=== PATIENT | male | born 1985 | race Caucasian/White ===

== ENCOUNTER 2018-01-16 13:56 | Inpatient (IN) | payer BC ==
[2018-01-16 14:27] VITALS: BMI 28.7
--- NOTE | 2018-01-16 16:41 | HP ---
COWS - Scale Resting Pulse: 0= [place] 80 or Below Sweatin=Flushed/Facial Moisture Restless Observation: 1= Difficult to Sit Still Pupil Size: 2= Moderately Dilated Bone or Joint Aches: 1= Mild Discomfort Runny Nose/ Eye Tearin= Runny Nose/Eyes GI Upset > 30mins: 2= Nausea/Diarrhea Tremor Observation: 2= Slight Tremor Visible Yawning Observation: 0= None Anxiety or Irritability: 1=Feels Anxious/Irritable Goose Flesh Skin: 0=Smooth Skin COWS Score: 13 Admission ROS S - HPI Chief Complaint: Here for percocet detox. Allergies/Adverse Reactions: Allergies Allergy/AdvReac Type Severity Reaction Status Date / Time No Known Allergies Allergy Verified 01/16/18 18:09 History of Present Illness: Using percocets for approx 1 year. Uses 8-10 percocets or 6-8 oxy's. Denies heroin use. Denies alcohol use. Denies cocaine use. Has tried to stop 2 months ago and was ill. This is the first attempt at inpatient management. Denies significant PMH/PSH. - Ebola screening Have you traveled outside of the country in the last 21 days: No (N) Have you had contact with anyone from an Ebola affected area: No Have you been sick,other than usual withdrawal symptoms: No Do you have a fever: No - Review of Systems Constitutional: Chills EENT: reports: Other (Noted stye in eye 1 week ago after unknown object went in eye while weed wacking. Denies eye pain or vision changes.) Respiratory: reports: No Symptoms reported Cardiac: reports: No Symptoms Reported GI: reports: Nausea (r/t withdrawal) : reports: No Symptoms Reported Musculoskeletal: reports: Muscle Pain (mild r/t withdrawal) Integumentary: reports: No Symptoms Reported Neuro: reports: No Symptoms reported Endocrine: reports: No Symptoms Reported Hematology: reports: No Symptoms Reported Psychiatric: reports: No Sypmtoms Reported, Orientated x3 Patient History - Patient Medical History Hx Anemia: No Hx Asthma: No Hx Chronic Obstructive Pulmonary Disease (COPD): No Hx Cancer: No Hx Cardiac Disorders: No Hx Congestive Heart Failure: No Hx Hypertension: No Hx Hypercholesterolemia: No Hx Pacemaker: No HX Cerebrovascular Accident: No Hx Seizures: No Hx Dementia: No Hx Diabetes: No Hx Gastrointestinal Disorders: No Hx Liver Disease: No Hx Genitourinary Disorders: No Hx Sexually Transmitted Disorders: No Hx Renal Disease (ESRD): No Hx Thyroid Disease: No Hx Human Immunodeficiency Virus (HIV): No (Last tested 2 years ago. Refusing testing.) Hx Hepatitis C: No Hx Depression: No Hx Suicide Attempt: No (Denies suicide or violent ideation ) Hx Bipolar Disorder: No Hx Schizophrenia: No - Patient Surgical History Past Surgical History: No - PPD History Previous Implant?: Yes (5 years ago) Implanted On Prior R Admission?: No PPD to be Administered?: Yes - Reproductive History Patient is a Female of Child Bearing Age (11 -55 yrs old): No - Smoking Cessation Smoking history: Never smoked Have you smoked in the past 12 months: No - Substance & Tx. History Hx Alcohol Use: No Hx Substance Use: Yes Substance Use Type: Opiates Hx Substance Use Treatment: No - Substances Abused Oxycontin Route: Oral Frequency: Daily Amount used: 6-8 Age of first use: 30 Date of Last Use: 01/16/18 (11 am) Family Disease History - Family Disease History Family Disease History: CA: Father (Pancreatic - ), Respiratory: Father Admission Physical Exam [facility] - Vital Signs Vital Signs: Vital Signs - 24 hr 01/16/18 14:25 Temperature 98.4 F Pulse Rate 71 Respiratory 16 Rate Blood Pressure 141/82 - Physical General Appearance: Yes: Nourished, Appropriately Dressed HEENTM: Yes: EOMI, Hearing grossly Normal, Normocephalic, Normal Voice, SUSY ( Pupils at 4 mm dilation), Rhinorrhea, Other (small papule (L) lower inner eyelid. Sclera clear. Conjuntiva pink and w/o exudate.) Respiratory: Yes: Chest Non-Tender, Lungs Clear, Normal Breath Sounds Neck: Yes: No masses,lesions,Nodules, Supple Breast: Yes: Breast Exam Deferred Cardiology: Yes: Regular Rhythm, Regular Rate, S1, S2 Abdominal: Yes: Normal Bowel Sounds, Non Tender, Flat, Soft Genitourinary: Yes: Within Normal Limits Musculoskeletal: Yes: full range of Motion, Gait Steady Extremities: Yes: Normal Capillary Refill, Normal Inspection, Normal Range of Motion, Tremors (of extended arms) Neurological: Yes: road patcher II-XII NML intact, Fully Oriented, Alert, Motor Strength 5/5 Integumentary: Yes: Dry (Dry skin w/ decreased turgor/elascticity) - Diagnostic (1) Opiate withdrawal Current Visit: Yes Status: Acute (2) Dehydration Current Visit: Yes Status: Acute (3) Sty, external Current Visit: Yes Status: Acute Qualifiers: Laterality: left Eyelid: lower Qualified Code(s): H00.015 - Hordeolum externum left lower eyelid Cleared for Admission [facility] - Detox or Rehab [facility] Level of Care: Medically Managed Detox Regimen/Protocol: Methadone [facility] Breath Alcohol Content Breath Alcohol Content: 0 Urine Drug Screen - Results Drug Screen Negative: No Urine Drug Screen Results: JUAN DAVID-Cocaine, OPI-Opiates, OXY-Oxycodone
[2018-01-16] MEDS ORDERED: IBUPROFEN 400 MG TABLET (FP) PO PRN (17:04)
[2018-01-16] MEDS ORDERED: MAGNESIUM HYDROX 2400MG/30ML ORAL SUSPENSION 30 ML CUP PO PRN (17:04)
[2018-01-16] MEDS ORDERED: LOPERAMIDE HCL 2 MG CAPSULE PO PRN (17:04)
[2018-01-16] MEDS ORDERED: MENTHOL/PHENOL 1 EACH UD MM PRN (17:04)
[2018-01-16] MEDS ORDERED: MAGNESIUM CITRATE 300 ML BOTTLE PO PRN (17:04)
[2018-01-16] MEDS ORDERED: MAG HYDROX/AL HYDROX/SIMETH 30 ML UNIT-DOSE CUP PO PRN (17:04)
[2018-01-16] MEDS ORDERED: P-EPHED 60MG/TRIPROLIDI 2.5MG TABLET PO PRN (17:04)
[2018-01-16] MEDS ORDERED: guaiFENesin/D-METHORPHAN HB 10 ML UNIT-DOSE CUPS PO PRN (17:04)
[2018-01-16] MEDS ORDERED: ACETAMINOPHEN 325 MG TABLET (FP) PO PRN (17:04)
[2018-01-16] MEDS ORDERED: hydrOXYzine PAMOATE 50 MG CAPSULE (FP) PO PRN (17:04)
[2018-01-16] MEDS ORDERED: METHADONE HCL 10 MG TABLET (FOR DETOX USE ONLY) PO ONE ×2 (18:45→23:00)
[2018-01-16] MEDS: diazePAM 5 MG TABLET PO PRN (19:12)
[2018-01-16] MEDS: THIAMINE HCL 100 MG TABLET (FP) PO SCH (22:24)
[2018-01-16] MEDS: MELATONIN 5 MG TABLETS PO PRN (22:25)
[2018-01-16 23:21] LABS: URINE APPEARANCE CLEAR; URINE BILIRUBIN NEGATIVE (<2.0 mg/dL); URINE BLOOD NEGATIVE (NEGATIVE); URINE COLOR YELLOW; URINE GLUCOSE (UA) 2+ (NEGATIVE); URINE KETONE NEGATIVE (NEGATIVE); URINE LEUK ESTERASE NEGATIVE (NEGATIVE); URINE NITRITE NEGATIVE (NEGATIVE); URINE PROTEIN NEGATIVE (NEGATIVE)
[2018-01-17] MEDS ORDERED: METHADONE HCL 10 MG TABLET (FOR DETOX USE ONLY) PO ONE (10:00)
[2018-01-17 10:09] LABS: HEMATOCRIT 48.6 % (35.4-49); HEMOGLOBIN 16.4 GM/dL (11.7-16.9); MCH 30.4 pg (25.7-33.7); MCHC 33.8 g/dl (32.0-35.9); MEAN CELL VOLUME 89.9 fl (80-96); MEAN PLT VOLUME 8.8 fl (7.5-11.1); PLATELET COUNT 206 K/MM3 (134-434); RDW 13.4 % (11.9-15.9); WHITE BLOOD COUNT 6.1 K/mm3 (4.0-10.0)
[2018-01-17] MEDS: ERYTHROMYCIN 0.5% OPHTHALMIC OINTMENT 3.5 GM TUBE OU SCH (10:34)
[2018-01-17] MEDS: PRENATAL VITAMINS W/ FOLIC ACID TABLET (FP) PO SCH (10:35)
[2018-01-17 10:37] LABS: CHLORIDE 103 mmol/L (98-107); POTASSIUM 4.3 mmol/L (3.5-5.1); SODIUM 140 mmol/L (136-145)
--- NOTE | 2018-01-17 12:05 | CONSULT ---
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 This is patient's first admission to detox. Pt. admitted to for opioid dependence. Substance Abuse History: Smoking Cessation. Smoking history: Never smoked. Have you smoked in the past 12 months: No. - Substance & Tx. History. Hx Alcohol Use: No. Hx Substance Use: Yes. Substance Use Type: Opiates. Hx Substance Use Treatment: No. - Substances Abused. Oxycontin. Route: Oral. Frequency: Daily. Amount used: 6-8. Age of first use: 30. Date of Last Use : 01/16/18 (11 am) Medical History: Denies. Psychiatric History: Patient denies h/o psychiatric hospitalization, outpatient treatment, and suicide attempt. Physical/Sexual Abuse/Trauma History: Denies. Mental Status Exam - Mental Status Exam Alert and Oriented to: Time, Place, Person Cognitive Function: Good Patient Appearance: Well Groomed Mood: Hopeful Affect: Mood Congruent Patient Behavior: Appropriate, Cooperative Speech Pattern: Clear, Appropriate Voice Loudness: Normal Thought Process: Intact, Goal Oriented Thought Disorder: Not Present Hallucinations: Denies Suicidal Ideation: Denies Homicidal Ideation: Denies Insight/Judgement: Poor Sleep: Well Appetite: Good Muscle strength/Tone: Normal Gait/Station: Normal Psychiatric Findings - Problem List ([place] 1, 2,3) (1) Opiate withdrawal Current Visit: Yes Status: Acute - Initial Treatment Plan Initial Treatment Plan: Psychoeducation provided. Detoxification in progress. Observation.
[2018-01-17 12:21] LABS: ALBUMIN 3.6 g/dl (3.4-5.0); ALK PHOS 51 U/L (45-117); ANION GAP 10 (8-16); BILIRUBIN,TOTAL 0.6 mg/dL (0.2-1.0); BLOOD UREA NITROGEN 10 mg/dL (7-18); CALCIUM 8.7 mg/dL (8.5-10.1); CO2 27 mmol/L (21-32); CREATININE 1.2 mg/dL (0.7-1.3); GLUCOSE,RANDOM 91 mg/dL (74-106); SGOT/AST 26 U/L (15-37); SGPT/ALT 33 U/L (12-78); TOT PROT 6.8 g/dl (6.4-8.2)
--- NOTE | 2018-01-17 12:22 | EKG ---
Test Reason : Blood Pressure : / mmHG Vent. Rate : 060 BPM Atrial Rate : 060 BPM P-R Int : 142 ms QRS Dur : 088 ms QT Int : 380 ms P-R-T Axes : 052 037 046 degrees QTc Int : 380 ms NORMAL SINUS RHYTHM NORMAL ECG WHEN COMPARED WITH ECG OF 16-JAN-2018 18:55, NO SIGNIFICANT CHANGE WAS FOUND Confirmed by MD VICTORINO, CHRISTOPHER ([id number]) on 01/17/2018 12:22:24 PM Referred By: Confirmed By:CHRISTOPHER GLEASON MD
--- NOTE | 2018-01-17 12:25 | EKG ---
Test Reason : Blood Pressure : / mmHG Vent. Rate : 061 BPM Atrial Rate : 061 BPM P-R Int : 140 ms QRS Dur : 090 ms QT Int : 392 ms P-R-T Axes : 044 044 042 degrees QTc Int : 394 ms NORMAL SINUS RHYTHM WITH SINUS ARRHYTHMIA NORMAL ECG WHEN COMPARED WITH ECG OF 08-MAR-2015 01:34, NO SIGNIFICANT CHANGE WAS FOUND Confirmed by MD VICTORINO, CHRISTOPHER ([id number]) on 01/17/2018 12:24:51 PM Referred By: Confirmed By:CHRISTOPHER GLEASON MD
--- NOTE | 2018-01-17 14:56 | PN ---
BHS COWS - Scale Resting Pulse: 0= [place] 80 or Below Sweatin= Chills/Flushing Restless Observation: 1= Difficult to Sit Still Pupil Size: 0= Normal to Room Light Bone or Joint Aches: 1= Mild Discomfort Runny Nose/ Eye Tearin= Runny Nose/Eyes GI Upset > 30mins: 0= None Tremor Observation of Outstretched Hands: 2= Slight Tremor Visible Yawning Observation: 1= 1-2x During Session Anxiety or Irritability: 2=Irritable/Anxious Goose Flesh Skin: 3=Piloerection COWS Score: 13 BHS Progress Note (SOAP) Subjective: Tremors, Anxious, Interrupted Sleep. Objective: PATIENT A & O X 3, OBSERVED AMBULATING ON UNIT. NO ACUTE DISTRESS. 01/17/18 14:57 Vital Signs Temperature 97.0 F L 01/17/18 13:48 Pulse Rate 69 01/17/18 13:48 Respiratory Rate 20 01/17/18 13:48 Blood Pressure 109/69 01/17/18 13:48 O2 Sat by Pulse Oximetry (%) Laboratory Tests 01/16/18 01/17/18 01/17/18 22:30 07:20 07:20 WBC 6.1 D RBC 5.40 Hgb 16.4 Hct 48.6 MCV 89.9 MCH 30.4 MCHC 33.8 RDW 13.4 Plt Count 206 MPV 8.8 D Sodium 140 Potassium 4.3 Chloride 103 Carbon Dioxide 27 Anion Gap 10 BUN 10 D Creatinine 1.2 Creat Clearance w eGFR > 60 Random Glucose 91 Calcium 8.7 Total Bilirubin 0.6 AST 26 ALT 33 Alkaline Phosphatase 51 D Total Protein 6.8 Albumin 3.6 Urine Color Yellow Urine Appearance Clear Urine pH 6.0 Ur Specific [place] 1.020 Urine Protein Negative Urine Glucose (UA) 2+ H Urine Ketones Negative Urine Blood Negative Urine Nitrite Negative Urine Bilirubin Negative Urine Urobilinogen 2.0 Ur Leukocyte Esterase Negative LABS NOTED. RPR RESULT PENDING. 01/17/18 14:58 Assessment: 01/17/18 14:57 WITHDRAWAL SYMPTOMS. Plan: CONTINUE DETOX. INCREASE DAILY PO FLUID INTAKE.
[2018-01-17] MEDS: THIAMINE HCL 100 MG TABLET (FP) PO SCH (22:15)
[2018-01-17] MEDS: diazePAM 5 MG TABLET PO PRN (22:15)
[2018-01-18] MEDS ORDERED: cloNIDine HCL 0.1 MG TABLET PO ONE (09:55)
[2018-01-18] MEDS ORDERED: METHADONE HCL 5 MG TABLET (FOR DETOX USE ONLY) PO ONE (10:00)
[2018-01-18] MEDS: PRENATAL VITAMINS W/ FOLIC ACID TABLET (FP) PO SCH (10:37)
[2018-01-18] MEDS: ERYTHROMYCIN 0.5% OPHTHALMIC OINTMENT 3.5 GM TUBE OU SCH (10:38)
[2018-01-18] MEDS: diazePAM 5 MG TABLET PO PRN ×2 (10:38→22:10)
[2018-01-18] MEDS ORDERED: CYCLOBENZAPRINE HCL 10 MG TABLET (FP) PO PRN (12:37)
--- NOTE | 2018-01-18 13:42 | PN ---
BHS COWS - Scale Resting Pulse: 1= [place] 81-100 Sweatin= Chills/Flushing Restless Observation: 1= Difficult to Sit Still Pupil Size: 0= Normal to Room Light Bone or Joint Aches: 0= None Runny Nose/ Eye Tearin= Nasal Congestion GI Upset > 30mins: 1= Stomach Cramp Tremor Observation of Outstretched Hands: 2= Slight Tremor Visible Yawning Observation: 1= 1-2x During Session Anxiety or Irritability: 2=Irritable/Anxious Goose Flesh Skin: 3=Piloerection COWS Score: 13 BHS Progress Note (SOAP) Subjective: Tremors, Hot/Cold Sensations, Stomach Cramping, Body Aches. Objective: PATIENT A & O X 3, OBSERVED AMBULATING ON UNIT. NO ACUTE DISTRESS. 01/18/18 13:39 Vital Signs Temperature 97.6 F 01/18/18 09:37 Pulse Rate 84 01/18/18 09:37 Respiratory Rate 18 01/18/18 09:37 Blood Pressure 138/88 01/18/18 09:37 O2 Sat by Pulse Oximetry (%) Laboratory Tests 01/16/18 01/17/18 01/17/18 22:30 07:20 07:20 WBC 6.1 D RBC 5.40 Hgb 16.4 Hct 48.6 MCV 89.9 MCH 30.4 MCHC 33.8 RDW 13.4 Plt Count 206 MPV 8.8 D Sodium 140 Potassium 4.3 Chloride 103 Carbon Dioxide 27 Anion Gap 10 BUN 10 D Creatinine 1.2 Creat Clearance w eGFR > 60 Random Glucose 91 Calcium 8.7 Total Bilirubin 0.6 AST 26 ALT 33 Alkaline Phosphatase 51 D Total Protein 6.8 Albumin 3.6 Urine Color Yellow Urine Appearance Clear Urine pH 6.0 Ur Specific [place] 1.020 Urine Protein Negative Urine Glucose (UA) 2+ H Urine Ketones Negative Urine Blood Negative Urine Nitrite Negative Urine Bilirubin Negative Urine Urobilinogen 2.0 Ur Leukocyte Esterase Negative RPR Titer 01/17/18 07:20 WBC RBC Hgb Hct MCV MCH MCHC RDW Plt Count MPV Sodium Potassium Chloride Carbon Dioxide Anion Gap BUN Creatinine Creat Clearance w eGFR Random Glucose Calcium Total Bilirubin AST ALT Alkaline Phosphatase Total Protein Albumin Urine Color Urine Appearance Urine pH Ur Specific [place] Urine Protein Urine Glucose (UA) Urine Ketones Urine Blood Urine Nitrite Urine Bilirubin Urine Urobilinogen Ur Leukocyte Esterase RPR Titer Nonreactive LABS NOTED. Assessment: 01/18/18 13:39 WITHDRAWAL SYMPTOMS. Plan: CONTINUE DETOX. INCREASE DAILY PO FLUID INTAKE. CLONIDINE, 0.1 MG PO FOR WITHDRAWAL SYMPTOMS AND FOR ELEVATED BP. PRN FLEXERIL FOR BODY ACHES/MUSCLE SPASMS.
[2018-01-18] MEDS: THIAMINE HCL 100 MG TABLET (FP) PO SCH (22:09)
[2018-01-18] MEDS: MELATONIN 5 MG TABLETS PO PRN (22:10)
[2018-01-19] MEDS ORDERED: METHADONE HCL 10 MG TABLET (FOR DETOX USE ONLY) PO ONE (10:00)
[2018-01-19] MEDS ORDERED: METHADONE HCL 5 MG TABLET (FOR DETOX USE ONLY) PO ONE (10:00)
[2018-01-19] MEDS: diazePAM 5 MG TABLET PO PRN (10:34)
[2018-01-19] MEDS: PRENATAL VITAMINS W/ FOLIC ACID TABLET (FP) PO SCH (10:34)
[2018-01-19] MEDS: ERYTHROMYCIN 0.5% OPHTHALMIC OINTMENT 3.5 GM TUBE OU SCH (10:35)
[2018-01-19] MEDS ORDERED: METHADONE HCL 10 MG TABLET (FOR DETOX USE ONLY) ONE (10:35)
--- NOTE | 2018-01-19 12:56 | PN ---
BHS Progress Note (SOAP) Subjective: Anxious, Stomach Discomfort. Objective: PATIENT A & O X 3, OBSERVED AMBULATING ON UNIT. NO ACUTE DISTRESS. 01/19/18 12:54 Vital Signs Temperature 96.9 F L 01/19/18 10:18 Pulse Rate 76 01/19/18 10:18 Respiratory Rate 18 01/19/18 10:18 Blood Pressure 130/86 01/19/18 10:18 O2 Sat by Pulse Oximetry (%) Laboratory Tests 01/16/18 01/17/18 01/17/18 22:30 07:20 07:20 WBC 6.1 D RBC 5.40 Hgb 16.4 Hct 48.6 MCV 89.9 MCH 30.4 MCHC 33.8 RDW 13.4 Plt Count 206 MPV 8.8 D Sodium 140 Potassium 4.3 Chloride 103 Carbon Dioxide 27 Anion Gap 10 BUN 10 D Creatinine 1.2 Creat Clearance w eGFR > 60 Random Glucose 91 Calcium 8.7 Total Bilirubin 0.6 AST 26 ALT 33 Alkaline Phosphatase 51 D Total Protein 6.8 Albumin 3.6 Urine Color Yellow Urine Appearance Clear Urine pH 6.0 Ur Specific [place] 1.020 Urine Protein Negative Urine Glucose (UA) 2+ H Urine Ketones Negative Urine Blood Negative Urine Nitrite Negative Urine Bilirubin Negative Urine Urobilinogen 2.0 Ur Leukocyte Esterase Negative RPR Titer 01/17/18 07:20 WBC RBC Hgb Hct MCV MCH MCHC RDW Plt Count MPV Sodium Potassium Chloride Carbon Dioxide Anion Gap BUN Creatinine Creat Clearance w eGFR Random Glucose Calcium Total Bilirubin AST ALT Alkaline Phosphatase Total Protein Albumin Urine Color Urine Appearance Urine pH Ur Specific [place] Urine Protein Urine Glucose (UA) Urine Ketones Urine Blood Urine Nitrite Urine Bilirubin Urine Urobilinogen Ur Leukocyte Esterase RPR Titer Nonreactive LABS NOTED. Assessment: 01/19/18 12:54 WITHDRAWAL SYMPTOMS. Plan: CONTINUE DETOX. PRN [place] PO FOR STOMACH DISCOMFORT. INCREASE DAILY PO FLUID INTAKE. PATIENT REPORTS THAT HE IS TOLERATING CURRENT DETOX SYMPTOMS WELL. AT PATIENT'S REQUEST, CURRENT DETOX MEDICATION REGIMEN (METHADONE) MODIFIED SO THAT PATIENT MAY BE DISCHARGED TOMORROW, 01/20/2018.
[2018-01-19] MEDS: THIAMINE HCL 100 MG TABLET (FP) PO SCH (22:19)
[2018-01-19] MEDS: MELATONIN 5 MG TABLETS PO PRN (22:20)
[2018-01-20] MEDS ORDERED: METHADONE HCL 5 MG TABLET (FOR DETOX USE ONLY) PO ONE (06:00)
[2018-01-20 06:29] VITALS: BP 121/66; PULSE 51; TEMP 96.3
[2018-01-20] MEDS ORDERED: METHADONE HCL 10 MG TABLET (FOR DETOX USE ONLY) PO ONE (10:00)
--- NOTE | 2018-01-20 16:48 | PN ---
BHS Progress Note (SOAP) Subjective: Patient denies current Detox symptoms and reports that he feels well overall. Objective: PATIENT A & O X 3, OBSERVED AMBULATING ON UNIT. NO ACUTE DISTRESS. 01/20/18 16:47 Vital Signs Temperature 96.3 F L 01/20/18 06:28 Pulse Rate 51 L 01/20/18 06:28 Respiratory Rate 18 01/20/18 06:28 Blood Pressure 121/66 01/20/18 06:28 O2 Sat by Pulse Oximetry (%) Laboratory Tests 01/16/18 01/17/18 01/17/18 22:30 07:20 07:20 WBC 6.1 D RBC 5.40 Hgb 16.4 Hct 48.6 MCV 89.9 MCH 30.4 MCHC 33.8 RDW 13.4 Plt Count 206 MPV 8.8 D Sodium 140 Potassium 4.3 Chloride 103 Carbon Dioxide 27 Anion Gap 10 BUN 10 D Creatinine 1.2 Creat Clearance w eGFR > 60 Random Glucose 91 Calcium 8.7 Total Bilirubin 0.6 AST 26 ALT 33 Alkaline Phosphatase 51 D Total Protein 6.8 Albumin 3.6 Urine Color Yellow Urine Appearance Clear Urine pH 6.0 Ur Specific [place] 1.020 Urine Protein Negative Urine Glucose (UA) 2+ H Urine Ketones Negative Urine Blood Negative Urine Nitrite Negative Urine Bilirubin Negative Urine Urobilinogen 2.0 Ur Leukocyte Esterase Negative RPR Titer 01/17/18 07:20 WBC RBC Hgb Hct MCV MCH MCHC RDW Plt Count MPV Sodium Potassium Chloride Carbon Dioxide Anion Gap BUN Creatinine Creat Clearance w eGFR Random Glucose Calcium Total Bilirubin AST ALT Alkaline Phosphatase Total Protein Albumin Urine Color Urine Appearance Urine pH Ur Specific [place] Urine Protein Urine Glucose (UA) Urine Ketones Urine Blood Urine Nitrite Urine Bilirubin Urine Urobilinogen Ur Leukocyte Esterase RPR Titer Nonreactive LABS NOTED. Assessment: 01/20/18 16:48 COMPLETION OF DETOX REGIMEN. Plan: PATIENT SCHEDULED FOR DISCHARGE FROM DETOX UNIT TODAY.
--- NOTE | 2018-01-20 16:52 | DS ---
[facility] Detox Discharge Summary Admission Date: 01/16/18 Discharge Date: 01/20/18 - History Present History: Opioid Dependence Additional Comments: PATIENT GOING HOME TO RETURN TO WORK. PATIENT ADVISED TO CONSIDER LOCAL 12-STEP / NA OUTPATIENT SUPPORT GROUP PROGRAM FOR AFTERCARE. PATIENT WAS DISCHARGED FROM DETOX UNIT IN STABLE MEDICAL CONDITION. Pertinent Past History: Dehydration, External Sty of Left Eye. - Physical Exam Results Vital Signs: Vital Signs Temperature 96.3 F L 01/20/18 06:28 Pulse Rate 51 L 01/20/18 06:28 Respiratory Rate 18 01/20/18 06:28 Blood Pressure 121/66 01/20/18 06:28 O2 Sat by Pulse Oximetry (%) Pertinent Admission Physical Exam Findings: WITHDRAWAL SYMPTOMS. Laboratory Tests 01/16/18 01/17/18 01/17/18 22:30 07:20 07:20 WBC 6.1 D RBC 5.40 Hgb 16.4 Hct 48.6 MCV 89.9 MCH 30.4 MCHC 33.8 RDW 13.4 Plt Count 206 MPV 8.8 D Sodium 140 Potassium 4.3 Chloride 103 Carbon Dioxide 27 Anion Gap 10 BUN 10 D Creatinine 1.2 Creat Clearance w eGFR > 60 Random Glucose 91 Calcium 8.7 Total Bilirubin 0.6 AST 26 ALT 33 Alkaline Phosphatase 51 D Total Protein 6.8 Albumin 3.6 Urine Color Yellow Urine Appearance Clear Urine pH 6.0 Ur Specific [place] 1.020 Urine Protein Negative Urine Glucose (UA) 2+ H Urine Ketones Negative Urine Blood Negative Urine Nitrite Negative Urine Bilirubin Negative Urine Urobilinogen 2.0 Ur Leukocyte Esterase Negative RPR Titer 01/17/18 07:20 WBC RBC Hgb Hct MCV MCH MCHC RDW Plt Count MPV Sodium Potassium Chloride Carbon Dioxide Anion Gap BUN Creatinine Creat Clearance w eGFR Random Glucose Calcium Total Bilirubin AST ALT Alkaline Phosphatase Total Protein Albumin Urine Color Urine Appearance Urine pH Ur Specific [place] Urine Protein Urine Glucose (UA) Urine Ketones Urine Blood Urine Nitrite Urine Bilirubin Urine Urobilinogen Ur Leukocyte Esterase RPR Titer Nonreactive LABS NOTED. - Treatment Hospital Course: Detox Protocol Followed, Detoxed Safely, Responded well, Discharged Condition Good Patient has Accepted a Rehab Referral to: PATIENT ADVISED TO CONSIDER LOCAL 12- STEP/NA OUTPATIENT SUPPORT GROUPS. - Medication Discharge Medications: Ambulatory Orders NK [No Known Home Medication] 03/08/15 - Diagnosis (1) Dehydration Status: Acute (2) Sty, external Status: Acute Qualifiers: Laterality: left Eyelid: lower Qualified Code(s): H00.015 - Hordeolum externum left lower eyelid (3) Opioid dependence with withdrawal Status: Acute - AMA Did Patient Leave Against Medical Advice: No
[2018-01-21] MEDS ORDERED: METHADONE HCL 5 MG TABLET (FOR DETOX USE ONLY) PO ONE (06:00)
== END 2018-01-20 09:00 | disposition home or self-care (01) | DRG 897 ==
LOC: YASAS 13:56 → Y3N 18:28
PROVIDERS: ADMIT Surgery; ATTEND Surgery
PROC: HZ2ZZZZ Detoxification Services for Substance Abuse Treatment (ICD-10-PCS; principal; 2018-01-16)
DX: F11.23 Opioid dependence with withdrawal (principal); H00.015 Hordeolum externum left lower eyelid; E86.0 Dehydration
CPT/HCPCS: 36415; 80053; 81003; 85027; 86593; 93005; 93010; J0735

== ENCOUNTER 2019-01-20 10:51 | Inpatient (IN) | payer BC, OTHER ==
[2019-01-20 13:09] VITALS: BMI 27.5
--- NOTE | 2019-01-20 14:13 | HP ---
COWS - Scale Resting Pulse: 0= [place] 80 or Below Sweatin= Chills/Flushing Restless Observation: 1= Difficult to Sit Still Pupil Size: 0= Normal to Room Light Bone or Joint Aches: 1= Mild Discomfort Runny Nose/ Eye Tearin= Nasal Congestion GI Upset > 30mins: 1= Stomach Cramp Tremor Observation: 2= Slight Tremor Visible Yawning Observation: 1= 1-2x During Session Anxiety or Irritability: 1=Feels Anxious/Irritable Goose Flesh Skin: 0=Smooth Skin COWS Score: 9 CIWA Score - Admission Criteria [facility]ASAS Guidelines: Admission for Medically Managed Detox: Requires at least one of the followin. CIWA greater than 12 2. Seizures within the past 24 hours 3. Delirium tremens within the past 24 hours 4. Hallucinations within the past 24 hours 5. Acute intervention needed for co occurring medical disorder 6. Acute intervention needed for co occurring psychiatric disorder 7. Severe withdrawal that cannot be handled at a lower level of care (continued vomiting, continued diarrhea, abnormal vital signs) requiring intravenous medication and/or fluids 8. Admission ROS S - HPI Chief Complaint: It's my birthday coming up - I don't want to be using, I have a good job, I want to keep my money. I'll get too sick when I try to do it myself. Allergies/Adverse Reactions: Allergies Allergy/AdvReac Type Severity Reaction Status Date / Time No Known Allergies Allergy Verified 01/20/19 13:01 History of Present Illness: 33 yo gentleman here for detox from opiates. urine tox + cocaine - denies any use but handles it for selling. He also shows urine tox + opiates but denies using heroin. Denies overdose, no seizures or black outs. Was in detox a year ago. History of PCP abuse in 2012,2014 treated at [facility]. Exam Limitations: Clinical Condition - Ebola screening Have you traveled outside of the country in the last 21 days: No (N) Have you had contact with anyone from an Ebola affected area: No Do you have a fever: No - Review of Systems Constitutional: Loss of Appetite, Malaise, Changes in sleep EENT: reports: Blurred Vision, Nose Congestion Respiratory: reports: No Symptoms reported Cardiac: reports: No Symptoms Reported GI: reports: Constipated, Nausea, Poor Appetite, Abdominal cramping : reports: No Symptoms Reported Musculoskeletal: reports: Muscle Pain Integumentary: reports: No Symptoms Reported Neuro: reports: Headache Endocrine: reports: No Symptoms Reported Hematology: reports: No Symptoms Reported Psychiatric: reports: Judgement Intact, Mood/Affect Appropiate, Orientated x3, Anxious Other Systems: Reviewed and Negative Patient History - Patient Medical History Hx Anemia: No Hx Asthma: No Hx Chronic Obstructive Pulmonary Disease (COPD): No Hx Cancer: No Hx Cardiac Disorders: No Hx Congestive Heart Failure: No Hx Hypertension: No Hx Hypercholesterolemia: No Hx Pacemaker: No HX Cerebrovascular Accident: No Hx Seizures: No Hx Dementia: No Hx Diabetes: No Hx Gastrointestinal Disorders: No Hx Liver Disease: No Hx Genitourinary Disorders: No Hx Sexually Transmitted Disorders: No Hx Renal Disease (ESRD): No Hx Thyroid Disease: No Hx Human Immunodeficiency Virus (HIV): No (Last tested 2 years ago. Refusing testing.) Hx Hepatitis C: No Hx Depression: No Hx Suicide Attempt: No (Denies suicide or violent ideation ) Hx Bipolar Disorder: No Hx Schizophrenia: No - Patient Surgical History Past Surgical History: No Hx Neurologic Surgery: No Hx Cataract Extraction: No Hx Cardiac Surgery: No Hx Lung Surgery: No Hx Breast Surgery: No Hx Breast Biopsy: No Hx Abdominal Surgery: No Hx Appendectomy: No Hx Cholecystectomy: No Hx Genitourinary Surgery: No Hx Section: No Hx Orthopedic Surgery: No Anesthesia Reaction: No - PPD History Previous Implant?: Yes Documented Results: Negative w/proof Implanted On Prior [facility] Admission?: Yes Date: 01/18/18 PPD to be Administered?: Yes - Reproductive History Patient is a Female of Child Bearing Age (11 -55 yrs old): No - Smoking Cessation Smoking history: Never smoked Have you smoked in the past 12 months: No Hx Chewing Tobacco Use: No Initiated information on smoking cessation: No - Substance & Tx. History Hx Alcohol Use: No Hx Substance Use: Yes Substance Use Type: Opiates Hx Substance Use Treatment: Yes (detox) - Substances abused Oxycontin Other (specify): roxicodone Substance route: Oral Frequency: Daily Amount used: 4-5 30mg/tab Age of first use: 32 Date of last use: 01/19/19 Other Other (specify): roxicodone Substance route: Oral Frequency: Daily Amount used: 4-5 30mg/tab Age of first use: 32 Date of last use: 01/19/19 Family Disease History - Family Disease History Family Disease History: CA: Father (Pancreatic - ), Respiratory: Father , Other: Mother (living - healthy), Brother (one - healthy- ), Sister (two - healthy ) Admission Physical Exam [facility] - Vital Signs Vital Signs: Vital Signs - 24 hr 01/20/19 12:59 Temperature 97.9 F Pulse Rate 73 Respiratory 18 Rate Blood Pressure 123/83 - Physical General Appearance: Yes: Nourished, Appropriately Dressed, Moderate Distress, Anxious HEENTM: Yes: EOMI, Normal ENT Inspection, Normocephalic, Normal Voice, Pharynx Normal Respiratory: Yes: Normal Breath Sounds, No Respiratory Distress Neck: Yes: Within Normal Limits Breast: Yes: Breast Exam Deferred Cardiology: Yes: Regular Rhythm, Regular Rate Abdominal: Yes: Flat Genitourinary: Yes: Within Normal Limits Back: Yes: Normal Inspection Musculoskeletal: Yes: full range of Motion, Gait Steady Extremities: Yes: Normal Inspection, Normal Range of Motion, Non-Tender Neurological: Yes: Fully Oriented, Alert, Motor Strength 5/5, Normal Mood/Affect , Normal Response Integumentary: Yes: Normal Color, Warm Lymphatic: Yes: Within Normal Limits - Diagnostic (1) Opioid dependence with withdrawal Current Visit: Yes Status: Chronic Cleared for Admission [facility] - Detox or Rehab [facility] Level of Care: Medically Managed Detox Regimen/Protocol: Methadone Inpatient Rehab Admission - Rehab Decision to Admit Inpatient rehab admission?: No
[2019-01-20] MEDS ORDERED: MENTHOL/PHENOL 1 EACH UD MM PRN (14:17)
[2019-01-20] MEDS ORDERED: ACETAMINOPHEN 325 MG TABLET (FP) PO PRN ×2 (14:17)
[2019-01-20] MEDS ORDERED: MAG HYDROX/AL HYDROX/SIMETH 30 ML UNIT-DOSE CUP PO PRN (14:17)
[2019-01-20] MEDS ORDERED: cloNIDine HCL 0.1 MG TABLET PO PRN (14:17)
[2019-01-20] MEDS ORDERED: MAGNESIUM CITRATE 300 ML BOTTLE PO PRN (14:17)
[2019-01-20] MEDS ORDERED: traZODone HCL 50 MG TABLET (FP) PO PRN (14:17)
[2019-01-20] MEDS ORDERED: BISMUTH SUBSALICYLATE 524 MG/30 ML UD PO PRN (14:17)
[2019-01-20] MEDS ORDERED: IBUPROFEN 400 MG TABLET (FP) PO PRN (14:17)
[2019-01-20] MEDS ORDERED: METHOCARBAMOL 500 MG TABLET PO PRN (14:17)
[2019-01-20] MEDS ORDERED: MAGNESIUM HYDROX 2400MG/30ML ORAL SUSPENSION 30 ML CUP PO PRN (14:17)
[2019-01-20] MEDS ORDERED: METHADONE HCL 10 MG TABLET (FOR DETOX USE ONLY) PO ONE ×2 (14:19→23:00)
[2019-01-20] MEDS: clonazePAM 0.5 MG TABLET PO PRN (15:29)
[2019-01-20] MEDS: THIAMINE HCL 100 MG TABLET (FP) PO SCH (22:10)
[2019-01-20] MEDS: MELATONIN 5 MG TABLETS PO PRN (22:10)
[2019-01-21] MEDS ORDERED: METHADONE HCL 10 MG TABLET (FOR DETOX USE ONLY) PO ONE (10:00)
[2019-01-21] MEDS: PRENATAL VITAMINS W/ FOLIC ACID TABLET (FP) PO SCH (10:22)
[2019-01-21 11:06] LABS: ALBUMIN 3.4 g/dl (3.4-5.0); BILIRUBIN,TOTAL 0.3 mg/dL (0.2-1); BLOOD UREA NITROGEN 11.1 mg/dL (7-18); CALCIUM 8.9 mg/dL (8.5-10.1); POTASSIUM 4.3 mmol/L (3.5-5.1)
[2019-01-21 11:15] LABS: HEMATOCRIT 42.5 % (35.4-49); HEMOGLOBIN 14.1 GM/dL (11.7-16.9); MCH 29.9 pg (25.7-33.7); MCHC 33.1 g/dl (32.0-35.9); MEAN CELL VOLUME 90.4 fl (80-96); MEAN PLT VOLUME 7.9 fl (7.5-11.1); RDW 13.9 % (11.9-15.9); WHITE BLOOD COUNT 6.8 K/mm3 (4.0-10.0)
[2019-01-21 11:29] LABS: PLATELET COUNT 253 K/MM3 (134-434)
--- NOTE | 2019-01-21 13:46 | PN ---
BHS COWS - Scale Resting Pulse: 0= [place] 80 or Below Sweatin= Chills/Flushing Restless Observation: 1= Difficult to Sit Still Pupil Size: 2= Moderately Dilated Bone or Joint Aches: 2= Severe Diffuse Aches Runny Nose/ Eye Tearin= Nasal Congestion GI Upset > 30mins: 1= Stomach Cramp Tremor Observation of Outstretched Hands: 1= Tremor [place], Not Seen Yawning Observation: 0= None Anxiety or Irritability: 1=Feels Anxious/Irritable Goose Flesh Skin: 0=Smooth Skin COWS Score: 10 BHS Progress Note (SOAP) Subjective: CO POOR SLEEP, ANXIOUS, SWEATS AND CHILLS Objective: 01/21/19 13:45 Vital Signs - 24 hr 01/20/19 01/20/19 01/21/19 18:06 21:51 00:47 Temperature 98.5 F 97.1 F L Pulse Rate 88 83 Respiratory 19 18 18 Rate Blood Pressure 132/91 116/82 01/21/19 01/21/19 01/21/19 03:41 06:45 09:08 Temperature 95.9 F L 96.9 F L Pulse Rate 55 L 72 Respiratory 18 18 16 Rate Blood Pressure 98/59 L 111/61 01/21/19 13:10 Temperature 96.7 F L Pulse Rate 77 Respiratory 18 Rate Blood Pressure 121/86 Laboratory Tests 01/21/19 01/21/19 01/21/19 07:30 07:30 07:30 WBC 6.8 RBC 4.70 Hgb 14.1 Hct 42.5 MCV 90.4 MCH 29.9 MCHC 33.1 RDW 13.9 Plt Count 253 D MPV 7.9 D Sodium 142 Potassium 4.3 Chloride 104 Carbon Dioxide 32 Anion Gap 6 L BUN 11.1 Creatinine 1.0 Est GFR (CKD-EPI)AfAm 112.51 Est GFR (CKD-EPI)NonAf 97.08 Random Glucose 85 Calcium 8.9 Total Bilirubin 0.3 AST 11 L ALT 16 Alkaline Phosphatase 60 Total Protein 6.0 L Albumin 3.4 RPR Titer Nonreactive ALERT, ORIENTED AND AMBULATING Assessment: 01/21/19 13:45 OPIATE DEP IN WITHDRAWAL Plan: CONT DETOX PROTOCOL
[2019-01-21] MEDS: clonazePAM 0.5 MG TABLET PO PRN (22:18)
[2019-01-21] MEDS: MELATONIN 5 MG TABLETS PO PRN (22:18)
[2019-01-21] MEDS: THIAMINE HCL 100 MG TABLET (FP) PO SCH (22:18)
[2019-01-22] MEDS ORDERED: METHADONE HCL 10 MG TABLET (FOR DETOX USE ONLY) PO ONE (10:00)
[2019-01-22] MEDS: PRENATAL VITAMINS W/ FOLIC ACID TABLET (FP) PO SCH (10:18)
--- NOTE | 2019-01-22 16:20 | PN ---
BHS COWS - Scale Resting Pulse: 1= [place] 81-100 Sweatin= Chills/Flushing Restless Observation: 1= Difficult to Sit Still Pupil Size: 0= Normal to Room Light Bone or Joint Aches: 0= None Runny Nose/ Eye Tearin= None GI Upset > 30mins: 0= None Tremor Observation of Outstretched Hands: 0= None Yawning Observation: 1= 1-2x During Session Anxiety or Irritability: 2=Irritable/Anxious Goose Flesh Skin: 3=Piloerection COWS Score: 9 BHS Progress Note (SOAP) Subjective: Anxious, Sweating, Interrupted Sleep. Objective: PATIENT A & O X 3, OBSERVED AMBULATING ON UNIT UNASSISTED. IN NO ACUTE DISTRESS. 01/22/19 16:19 Vital Signs Temperature 98.0 F 01/22/19 13:24 Pulse Rate 87 01/22/19 13:24 Respiratory Rate 18 01/22/19 13:24 Blood Pressure 133/80 01/22/19 13:24 O2 Sat by Pulse Oximetry (%) Laboratory Tests 01/21/19 01/21/19 01/21/19 07:30 07:30 07:30 WBC 6.8 RBC 4.70 Hgb 14.1 Hct 42.5 MCV 90.4 MCH 29.9 MCHC 33.1 RDW 13.9 Plt Count 253 D MPV 7.9 D Sodium 142 Potassium 4.3 Chloride 104 Carbon Dioxide 32 Anion Gap 6 L BUN 11.1 Creatinine 1.0 Est GFR (CKD-EPI)AfAm 112.51 Est GFR (CKD-EPI)NonAf 97.08 Random Glucose 85 Calcium 8.9 Total Bilirubin 0.3 AST 11 L ALT 16 Alkaline Phosphatase 60 Total Protein 6.0 L Albumin 3.4 RPR Titer Nonreactive LABS NOTED. Assessment: 01/22/19 16:19 WITHDRAWAL SYMPTOMS. Plan: CONTINUE DETOX.
[2019-01-22] MEDS: THIAMINE HCL 100 MG TABLET (FP) PO SCH (22:10)
[2019-01-22] MEDS: MELATONIN 5 MG TABLETS PO PRN (22:11)
[2019-01-23] MEDS ORDERED: METHADONE HCL 10 MG TABLET (FOR DETOX USE ONLY) PO ONE (10:00)
[2019-01-23] MEDS: PRENATAL VITAMINS W/ FOLIC ACID TABLET (FP) PO SCH (10:29)
--- NOTE | 2019-01-23 14:21 | PN ---
BHS COWS - Scale Resting Pulse: 0= [place] 80 or Below Sweatin= Chills/Flushing Restless Observation: 1= Difficult to Sit Still Pupil Size: 0= Normal to Room Light Bone or Joint Aches: 0= None Runny Nose/ Eye Tearin= None GI Upset > 30mins: 0= None Tremor Observation of Outstretched Hands: 0= None Yawning Observation: 1= 1-2x During Session Anxiety or Irritability: 2=Irritable/Anxious Goose Flesh Skin: 0=Smooth Skin COWS Score: 5 BHS Progress Note (SOAP) Subjective: Anxious, Sweating. Objective: PATIENT A & O X 3, OBSERVED AMBULATING ON UNIT UNASSISTED. IN NO ACUTE DISTRESS. 01/23/19 14:20 Vital Signs Temperature 98.0 F 01/23/19 13:28 Pulse Rate 65 01/23/19 13:28 Respiratory Rate 18 01/23/19 13:28 Blood Pressure 126/78 01/23/19 13:28 O2 Sat by Pulse Oximetry (%) Laboratory Tests 01/21/19 01/21/19 01/21/19 07:30 07:30 07:30 WBC 6.8 RBC 4.70 Hgb 14.1 Hct 42.5 MCV 90.4 MCH 29.9 MCHC 33.1 RDW 13.9 Plt Count 253 D MPV 7.9 D Sodium 142 Potassium 4.3 Chloride 104 Carbon Dioxide 32 Anion Gap 6 L BUN 11.1 Creatinine 1.0 Est GFR (CKD-EPI)AfAm 112.51 Est GFR (CKD-EPI)NonAf 97.08 Random Glucose 85 Calcium 8.9 Total Bilirubin 0.3 AST 11 L ALT 16 Alkaline Phosphatase 60 Total Protein 6.0 L Albumin 3.4 RPR Titer Nonreactive LABS NOTED. Assessment: 01/23/19 14:20 WITHDRAWAL SYMPTOMS. Plan: CONTINUE DETOX. PATIENT SCHEDULED FOR D/C TOMORROW.
[2019-01-23] MEDS: THIAMINE HCL 100 MG TABLET (FP) PO SCH (22:17)
[2019-01-23] MEDS: MELATONIN 5 MG TABLETS PO PRN (22:17)
[2019-01-24] MEDS ORDERED: METHADONE HCL 5 MG TABLET (FOR DETOX USE ONLY) PO ONE (06:00)
[2019-01-24 06:38] VITALS: BP 131/76; PULSE 88; TEMP 96.5
--- NOTE | 2019-01-24 17:41 | DS ---
[facility] Detox Discharge Summary Admission Date: 01/20/19 Discharge Date: 01/24/19 - History Present History: Opioid Dependence Additional Comments: PATIENT RETURNING HOME AND TO WORK. PATIENT REFERRED TO [facility] ([place], [place]) FOR AFTERCARE. PATIENT WAS DISCHARGED FROM DETOX UNIT IN STABLE MEDICAL CONDITION. - Physical Exam Results Vital Signs: Vital Signs Temperature 96.5 F L 01/24/19 06:37 Pulse Rate 88 01/24/19 06:37 Respiratory Rate 18 01/24/19 06:37 Blood Pressure 131/76 01/24/19 06:37 O2 Sat by Pulse Oximetry (%) Pertinent Admission Physical Exam Findings: WITHDRAWAL SYMPTOMS. Laboratory Tests 01/21/19 01/21/19 01/21/19 07:30 07:30 07:30 WBC 6.8 RBC 4.70 Hgb 14.1 Hct 42.5 MCV 90.4 MCH 29.9 MCHC 33.1 RDW 13.9 Plt Count 253 D MPV 7.9 D Sodium 142 Potassium 4.3 Chloride 104 Carbon Dioxide 32 Anion Gap 6 L BUN 11.1 Creatinine 1.0 Est GFR (CKD-EPI)AfAm 112.51 Est GFR (CKD-EPI)NonAf 97.08 Random Glucose 85 Calcium 8.9 Total Bilirubin 0.3 AST 11 L ALT 16 Alkaline Phosphatase 60 Total Protein 6.0 L Albumin 3.4 RPR Titer Nonreactive LABS NOTED. - Treatment Hospital Course: Detox Protocol Followed, Detoxed Safely, Responded well, Discharged Condition Good Patient has Accepted a Rehab Referral to: PATIENT REFERRED TO [facility] ([place], [place]). - Medication Discharge Medications: Ambulatory Orders NK [No Known Home Medication] 01/20/19 - Diagnosis (1) Opioid dependence with withdrawal Status: Acute - AMA Did Patient Leave Against Medical Advice: No
== END 2019-01-24 08:59 | disposition home or self-care (01) | DRG 897 ==
LOC: YASAS 10:51 → Y3N 14:17
PROVIDERS: ADMIT Surgery; ATTEND Surgery
PROC: HZ2ZZZZ Detoxification Services for Substance Abuse Treatment (ICD-10-PCS; principal; 2019-01-20)
DX: F11.23 Opioid dependence with withdrawal (principal)
CPT/HCPCS: 36415; 80053; 85027; 86593